=== PATIENT | female | born 1985 | race Caucasian/White ===

== ENCOUNTER → 2016-09-17 | Outpatient (CLI) | payer BC ==
[~2016-09-17] MED LIST: ADVIL200 MG PO; ARTIFICIAL TEAR1510 BOTH EYES; BENTYL10 MG PO; CULTURELLE CAP1 EACH PO; CYANOCOBAL1000 MCG/2 IM; FEOSOL325 MG PO; KLONOPIN0.5 M1 PO; LAMICTAL25 MG PO; MOTRIN800 MG PO; OMEPRAZOLE40 M1 PO; PROZAC10 MG PO; PROZAC20 MG PO; TROKENDI XR100 MG PO; VALIUM10 MG PO; VALTREX50 MG/ML PO; VITAMIN B122500 MCG PO; VITAMIN D22000 UNIT PO; ZANTAC300 MG PO; ZIPRASIDONE HCL80 MG PO
== END | disposition home or self-care (01) ==
LOC: NUC 06:56
DX: R11.2 Nausea with vomiting, unspecified (principal); R19.7 Diarrhea, unspecified; K59.04 Chronic idiopathic constipation; K21.9 Gastro-esophageal reflux disease without esophagitis; K92.1 Melena
CPT/HCPCS: 78264; A9541

== ENCOUNTER 2016-09-20 14:18 | Inpatient (IN) | payer BC ==
[~2016-09-20] VITALS: Ht 170.2 cm; Wt 75.2 kg
[~2016-09-20 14:18] MED LIST changes: -ADVIL200 MG PO; -ARTIFICIAL TEAR1510 BOTH EYES; -CULTURELLE CAP1 EACH PO; -CYANOCOBAL1000 MCG/2 IM; -FEOSOL325 MG PO; -LAMICTAL25 MG PO; -PROZAC10 MG PO; -TROKENDI XR100 MG PO; -VALIUM10 MG PO; -VITAMIN B122500 MCG PO; -VITAMIN D22000 UNIT PO; -ZANTAC300 MG PO
[2016-09-20 15:13] LABS: EOSINOPHIL (%) 0.8 % (0-5); EOSINOPHIL COUNT 0.1 K/uL (0-0.3); HEMATOCRIT 36.7 % (36.0-46.0); IMMATURE GRANULOCYTE (%) 0.3 % (0.0-0.7); INSTRUMENT ABS NEUTROPHIL CT 3.7 K/uL; LYMPHOCYTE COUNT 2.3 K/uL (1.0-2.8); MCH 23.2 PG (29.0-34.0); MCHC 30.8 G/DL (30.0-36.0); MCV 75.4 FL (83-99); MEAN PLAT.VOLUME 11.3 uM^3 (9.5-12.4); MONOCYTE (%) 5.9 % (3-12); MONOCYTE COUNT 0.4 K/uL (0-0.8); NEUTROPHIL (%) 57.3 % (45-76); NEUTROPHIL COUNT 3.7 K/uL (1.8-6.4); PLATELET COUNT 224 K/uL (156-360); RBC DIS.WIDTH-CV 15.9 % (11.8-14.6); RBC DIS.WIDTH-SD 43.2 % (39-53); RED BLOOD COUNT 4.87 M/uL (3.80-5.20); WHITE BLOOD COUNT 6.4 K/uL (4.1-10.2)
[2016-09-20 15:24] LABS: ADD MIUA? YES; BILIRUBIN NEGATIVE; BLOOD NEGATIVE; COLOR STRAW ((YELLOW)); GLUCOSE (STRIP) NEGATIVE; KETONES NEGATIVE; LEUKOCYTES TRACE; NITRITE NEGATIVE; PROTEIN (STRIP) NEGATIVE; SPECIFIC GRAVITY 1.005 (1.000-1.030); UROBILINOGEN 0.2 MG/DL (0.2-1.0)
[2016-09-20 15:32] LABS: AMPHETAMINE NEGATIVE (500 ng/mL); BARBITURATES NEGATIVE (200 ng/mL); BENZODIAZEPINES PRESUMPTIVE POSITIVE (150 ng/mL); COCAINE NEGATIVE (150 ng/mL); INTERNAL CONTROLS VALID? YES; METHADONE NEGATIVE (200 ng/mL); METHAMPHETAMINE NEGATIVE (500 ng/mL); OPIATES (MORPHINE) NEGATIVE (100 ng/mL); OXYCODONE NEGATIVE (100 ng/mL); PHENCYCLIDINE NEGATIVE (25 ng/mL); PROPOXYPHENE NEGATIVE (300 ng/mL); THC CANNABINOIDS NEGATIVE (50 ng/mL); TRICYCLIC ANTIDEPRESSANTS NEGATIVE (300 ng/mL)
[2016-09-20 15:33] LABS: ADD MEDTOX COMMENT Y
[2016-09-20 15:39] LABS: BACTERIA NONE SEEN /HPF; EPITHELIAL CELLS RARE /HPF; MUCUS TRACE /LPF; RED BLOOD CELLS 0-5 /HPF (0-5); WHITE BLOOD CELLS 0-5 /HPF (0-5)
[2016-09-20 15:44] LABS: CHLORIDE 110 mEq/L (99-109); POTASSIUM 4.3 mEq/L (3.7-5.4); SODIUM 140 mEq/L (136-147)
[2016-09-20 15:46] LABS: GLUCOSE 107 mg/dL (70-99)
[2016-09-20 15:47] LABS: ANION GAP 11 MEQ/L (2-14)
[2016-09-20 15:48] LABS: TOTAL BILIRUBIN 0.4 mg/dL (0.0-1.0)
[2016-09-20 15:49] LABS: SERUM ETHYL ALCOHOL < 10 mg/dL
[2016-09-20 15:50] LABS: GFR ESTIMATE (CALCULATED) > 59 mL/min/
[2016-09-20 15:51] LABS: ALKALINE PHOSPHATASE 89 IU/L (3-129)
[2016-09-20 15:52] LABS: DIRECT BILIRUBIN 0.1 mg/dL (0.0-0.3); UREA NITROGEN (BUN) 10 mg/dL (9-23)
[2016-09-20 15:53] LABS: SALICYLATE < 5.0 MG/DL (15-30)
[2016-09-20 15:59] LABS: QUANTITATIVE HCG < 4.0 MIU/ML
[2016-09-20 16:08] LABS: BENZODIAZEPINES, URINE SCREEN POSITIVE (200 ng/mL)
[2016-09-20] MEDS ORDERED: PROZAC10 MG PO (17:22)
[2016-09-20] MEDS ORDERED: CULTURELLE CAP1 EACH PO (17:23)
[2016-09-20] MEDS ORDERED: TROKENDI XR100 MG PO (17:24)
[2016-09-20] MEDS ORDERED: ADVIL200 MG PO (17:24)
[2016-09-20] MEDS ORDERED: ZANTAC300 MG PO (17:24)
[2016-09-20] MEDS ORDERED: LAMICTAL25 MG PO (17:24)
[2016-09-20] MEDS ORDERED: VALIUM10 MG PO (17:25)
[2016-09-20] MEDS ORDERED: VITAMIN D22000 UNIT PO (17:25)
[2016-09-20] MEDS ORDERED: CYANOCOBAL1000 MCG/2 IM (17:26)
[2016-09-20] MEDS ORDERED: VITAMIN B122500 MCG PO (17:26)
[2016-09-20] MEDS ORDERED: FEOSOL325 MG PO (17:27)
[2016-09-20] MEDS ORDERED: ARTIFICIAL TEAR1510 BOTH EYES (17:27)
[2016-09-20 19:02] VITALS: BP 114/76
[2016-09-21 08:31] VITALS: BP 110/59
[2016-09-21 15:34] VITALS: BP 119/66
[2016-09-22 07:57] VITALS: BP 114/59
[2016-09-22 16:29] VITALS: BP 134/72
[2016-09-23 09:14] VITALS: BP 107/70
[2016-09-23 17:02] VITALS: BP 124/65
[2016-09-24 07:57] VITALS: BP 114/66
[2016-09-24 15:36] VITALS: BP 115/57
[2016-09-25 07:38] VITALS: BP 107/64
[2016-09-25] MEDS ORDERED: MINIPRESS2 MG PO (09:18)
[2016-09-25] MEDS ORDERED: FLUOXETINE HCL20 MG PO (09:18)
[2016-09-25] MEDS ORDERED: LAMOTRIGINE100 MG PO (09:18)
[2016-09-25] MEDS ORDERED: PROZAC40 MG PO (09:27)
== END 2016-09-25 12:11 | disposition home or self-care (01) | DRG 885 ==
LOC: EME 14:18 → EDOF 16:41 → 1WEST 16:41 → ENRESERV 18:31 → 1WEST 18:56
PROVIDERS: Emergency Medicine
DX: F33.1 Major depressive disorder, recurrent, moderate (principal); F43.12 Post-traumatic stress disorder, chronic; F60.3 Borderline personality disorder; K21.9 Gastro-esophageal reflux disease without esophagitis; Z56.0 Unemployment, unspecified; T42.4X2A Poisoning by benzodiazepines, intentional self-harm, initial encounter; E53.8 Deficiency of other specified B group vitamins; E55.9 Vitamin D deficiency, unspecified
CPT/HCPCS: 78264; 80048; 80076; 81003; 84702; 84999; 85025; 90837; 97150 GO; 97165 GO; 99281; 99284; A9541; G0480; Q0177

== ENCOUNTER 2016-12-21 15:43 | Emergency (ER) | payer BC ==
[~2016-12-21] VITALS: Ht 170.2 cm; Wt 77.8 kg
[~2016-12-21 15:43] MED LIST changes: +ADVIL200 MG PO; +ARTIFICIAL TEAR1510 BOTH EYES; +CULTURELLE CAP1 EACH PO; +CYANOCOBAL1000 MCG/2 IM; +FEOSOL325 MG PO; +FLUOXETINE HCL20 MG PO; +LAMICTAL25 MG PO; +LAMOTRIGINE100 MG PO; +MINIPRESS2 MG PO; +PROZAC10 MG PO; +PROZAC40 MG PO; +TROKENDI XR100 MG PO; +VALIUM10 MG PO; +VITAMIN B122500 MCG PO; +VITAMIN D22000 UNIT PO; +ZANTAC300 MG PO
[2016-12-21 17:52] LABS: HEMATOCRIT 41.7 % (36.0-46.0); MCH 28.7 PG (29.0-34.0); MCHC 33.6 G/DL (30.0-36.0); MCV 85.6 FL (83-99); PLATELET COUNT 228 K/uL (156-360); RBC DIS.WIDTH-CV 14.5 % (11.8-14.6); RED BLOOD COUNT 4.87 M/uL (3.80-5.20); WHITE BLOOD COUNT 7.8 K/uL (4.1-10.2)
[2016-12-21 17:58] LABS: CHLORIDE 110 mEq/L (99-109); SODIUM 137 mEq/L (136-147)
[2016-12-21 18:00] LABS: GLUCOSE 85 mg/dL (70-99)
[2016-12-21 18:02] LABS: ANION GAP 8 MEQ/L (2-14); TOTAL BILIRUBIN 0.3 mg/dL (0.0-1.0)
[2016-12-21 18:04] LABS: ALKALINE PHOSPHATASE 62 IU/L (3-129); GFR ESTIMATE (CALCULATED) > 59 mL/min/
[2016-12-21 18:05] LABS: UREA NITROGEN (BUN) 11 mg/dL (9-23)
[2016-12-21 18:57] LABS: ADD MIUA? YES; BILIRUBIN NEGATIVE; BLOOD NEGATIVE; COLOR YELLOW ((YELLOW)); GLUCOSE (STRIP) NEGATIVE; KETONES NEGATIVE; LEUKOCYTES LARGE; NITRITE NEGATIVE; PROTEIN (STRIP) NEGATIVE; SPECIFIC GRAVITY 1.017 (1.000-1.030); UROBILINOGEN 0.2 MG/DL (0.2-1.0)
[2016-12-21 19:01] LABS: BACTERIA RARE /HPF; EPITHELIAL CELLS 1+ /HPF; MUCUS TRACE /LPF; UCUL ADDED? NO; WHITE BLOOD CELLS 0-5 /HPF (0-5)
[2016-12-21] MEDS ORDERED: MOTRIN800 MG PO (19:53)
[2016-12-21] MEDS ORDERED: FLEXERIL10 MG PO (19:53)
[2016-12-21] MEDS ORDERED: REGLAN5 MG PO (19:53)
[2016-12-21] MEDS ORDERED: PREDNISONE20 MG PO (19:53)
[2016-12-21] MEDS ORDERED: LIDODERM 5% P1 PATCH TD (19:54)
[2016-12-21 20:09] VITALS: BP 120/64
== END 2016-12-21 20:12 | disposition home or self-care (01) ==
LOC: EME 15:43
PROVIDERS: Nurse Practitioner Family
DX: R51 Headache (principal); M62.838 Other muscle spasm; H53.8 Other visual disturbances; K21.9 Gastro-esophageal reflux disease without esophagitis; F41.9 Anxiety disorder, unspecified
CPT/HCPCS: 70450; 80053; 81003; 85027; 87086; 99281; 99284; J1885; J7512

== ENCOUNTER 2017-02-23 19:26 | Inpatient (IN) | payer OTHER ==
[~2017-02-23] VITALS: Ht 170.2 cm; Wt 80.8 kg
[~2017-02-23 19:26] MED LIST changes: +FLEXERIL10 MG PO; +LIDODERM 5% P1 PATCH TD; +PREDNISONE20 MG PO; +REGLAN5 MG PO
[2017-02-23 22:18] LABS: AMPHETAMINE NEGATIVE (500 ng/mL); BARBITURATES NEGATIVE (200 ng/mL); BENZODIAZEPINES PRESUMPTIVE POSITIVE (150 ng/mL); BUPRENORPHINE NEGATIVE (10 ng/mL); COCAINE NEGATIVE (150 ng/mL); METHADONE NEGATIVE (200 ng/mL); METHAMPHETAMINE NEGATIVE (500 ng/mL); OPIATES (MORPHINE) NEGATIVE (100 ng/mL); OXYCODONE NEGATIVE (100 ng/mL); PHENCYCLIDINE NEGATIVE (25 ng/mL); PROPOXYPHENE NEGATIVE (300 ng/mL); THC CANNABINOIDS NEGATIVE (50 ng/mL); TRICYCLIC ANTIDEPRESSANTS NEGATIVE (300 ng/mL)
[2017-02-23 22:45] LABS: BENZODIAZEPINES, URINE SCREEN POSITIVE (200 ng/mL)
[2017-02-23 22:55] LABS: HEMATOCRIT 40.5 % (36.0-46.0); HEMOGLOBIN 13.9 G/DL (11.9-15.5); MCH 30.4 PG (29.0-34.0); MCHC 34.3 G/DL (30.0-36.0); MCV 88.6 FL (83-99); PLATELET COUNT 216 K/uL (156-360); RBC DIS.WIDTH-CV 12.6 % (11.8-14.6); RBC DIS.WIDTH-SD 41.1 % (39-53); RED BLOOD COUNT 4.57 M/uL (3.80-5.20); WHITE BLOOD COUNT 7.6 K/uL (4.1-10.2)
[2017-02-23 23:03] LABS: CHLORIDE 110 mEq/L (99-109); SODIUM 138 mEq/L (136-147)
[2017-02-23 23:05] LABS: GLUCOSE 95 mg/dL (70-99)
[2017-02-23 23:08] LABS: SERUM ETHYL ALCOHOL < 10 mg/dL
[2017-02-23 23:09] LABS: GFR ESTIMATE (CALCULATED) > 59 mL/min/
[2017-02-23 23:11] LABS: UREA NITROGEN (BUN) 10 mg/dL (9-23)
[2017-02-23 23:12] LABS: ACETAMINOPHEN (TYLENOL) < 10 mcg/mL (10-30); SALICYLATE < 5.0 MG/DL (15-30)
[2017-02-24] MEDS ORDERED: SETLAKIN 0.151 EACH PO (00:23)
[2017-02-24] MEDS ORDERED: VALIUM10 MG PO (00:23)
[2017-02-24] MEDS ORDERED: ATARAX,VISTARIL25 MG PO (00:25)
[2017-02-24] MEDS ORDERED: LAMICTAL100 MG PO (00:26)
[2017-02-24] MEDS ORDERED: PROZAC20 MG PO (00:29)
[2017-02-24 03:58] VITALS: BP 113/69
[2017-02-24 07:39] VITALS: BP 133/60
[2017-02-24 16:06] VITALS: BP 123/69
[2017-02-25 07:49] VITALS: BP 124/59
[2017-02-25 15:56] VITALS: BP 120/64
[2017-02-26 07:16] VITALS: BP 142/60
[2017-02-26 16:03] VITALS: BP 123/75
[2017-02-27 07:20] VITALS: BP 108/55
[2017-02-27] MEDS ORDERED: SEROQUEL100 MG PO (10:34)
[2017-02-27] MEDS ORDERED: VISTARIL50 MG PO (10:34)
== END 2017-02-27 12:06 | disposition home or self-care (01) | DRG 885 ==
LOC: EME 19:26 → EDOF 02-24 00:27 → 1WEST 02-24 00:27 → ENRESERV 02-24 03:56 → 1WEST 02-24 03:57
PROVIDERS: Emergency Medicine
DX: F33.2 Major depressive disorder, recurrent severe without psychotic features (principal); F43.12 Post-traumatic stress disorder, chronic; F60.3 Borderline personality disorder; F43.10 Post-traumatic stress disorder, unspecified; R45.851 Suicidal ideations; X78.0XXA Intentional self-harm by sharp glass, initial encounter
CPT/HCPCS: 80048; 84999; 85027; 90686; 90839; 97150 GO; 97165 GO; 99281; 99285; G0480; J3420; Q0177

== ENCOUNTER 2017-03-08 13:55 | Emergency (ER) | payer BC ==
[~2017-03-08] VITALS: Ht 170.2 cm; Wt 80.3 kg
[~2017-03-08 13:55] MED LIST changes: +ATARAX,VISTARIL25 MG PO; +LAMICTAL100 MG PO; +SEROQUEL100 MG PO; +SETLAKIN 0.151 EACH PO; +VISTARIL50 MG PO
[2017-03-08 16:42] LABS: HEMATOCRIT 42.5 % (36.0-46.0); HEMOGLOBIN 14.6 G/DL (11.9-15.5); MCH 30.9 PG (29.0-34.0); MCHC 34.4 G/DL (30.0-36.0); MCV 89.9 FL (83-99); PLATELET COUNT 246 K/uL (156-360); RBC DIS.WIDTH-CV 12.1 % (11.8-14.6); RBC DIS.WIDTH-SD 39.5 % (39-53); RED BLOOD COUNT 4.73 M/uL (3.80-5.20); WHITE BLOOD COUNT 8.4 K/uL (4.1-10.2)
[2017-03-08 16:52] LABS: CHLORIDE 104 mEq/L (99-109); POTASSIUM 4.7 mEq/L (3.7-5.4); SODIUM 140 mEq/L (136-147)
[2017-03-08 16:54] LABS: GLUCOSE 76 mg/dL (70-99)
[2017-03-08 16:57] LABS: SERUM ETHYL ALCOHOL < 10 mg/dL
[2017-03-08 16:58] LABS: CREATININE 0.8 mg/dL (0.6-1.3); GFR ESTIMATE (CALCULATED) > 59 mL/min/
[2017-03-08 16:59] LABS: UREA NITROGEN (BUN) 10 mg/dL (9-23)
[2017-03-08 17:09] LABS: QUANTITATIVE HCG < 4.0 MIU/ML
[2017-03-08 17:23] LABS: AMPHETAMINE NEGATIVE (500 ng/mL); BARBITURATES NEGATIVE (200 ng/mL); BENZODIAZEPINES PRESUMPTIVE POSITIVE (150 ng/mL); BUPRENORPHINE NEGATIVE (10 ng/mL); COCAINE NEGATIVE (150 ng/mL); METHADONE NEGATIVE (200 ng/mL); METHAMPHETAMINE NEGATIVE (500 ng/mL); OPIATES (MORPHINE) NEGATIVE (100 ng/mL); OXYCODONE NEGATIVE (100 ng/mL); PHENCYCLIDINE NEGATIVE (25 ng/mL); PROPOXYPHENE NEGATIVE (300 ng/mL); THC CANNABINOIDS NEGATIVE (50 ng/mL); TRICYCLIC ANTIDEPRESSANTS NEGATIVE (300 ng/mL)
[2017-03-08 18:01] LABS: BENZODIAZEPINES, URINE SCREEN POSITIVE (200 ng/mL)
[2017-03-08 21:05] VITALS: BP 135/74
== END 2017-03-08 21:15 ==
LOC: EME 13:55
PROVIDERS: Emergency Medicine
DX: F33.1 Major depressive disorder, recurrent, moderate (principal); R45.851 Suicidal ideations; F43.10 Post-traumatic stress disorder, unspecified; F60.3 Borderline personality disorder; K21.9 Gastro-esophageal reflux disease without esophagitis
CPT/HCPCS: 80048; 84702; 84999; 85027; 90837; 99281; 99285; G0480